=== PATIENT | female | born 1995 | race Two or more races ===

== ENCOUNTER → 2021-02-28 | Emergency (ER) | payer OTHER ==
[~2021-02-28] VITALS: Ht 170.2 cm; Wt 69.9 kg
[~2021-02-28] MED LIST: PRENATAL VITAM1 EAC3
== END | disposition home or self-care (01) ==
LOC: ER 09:49
DX: B34.9 Viral infection, unspecified (principal); Z11.52 Encounter for screening for COVID-19

== ENCOUNTER 2021-07-23 07:30 | Inpatient (IN) | payer OTHER ==
[~2021-07-23] VITALS: Ht 170.2 cm; Wt 82.1 kg
[2021-07-24] MEDS ORDERED: FAMOTIDINE20 MG (15:39)
[2021-07-24] MEDS ORDERED: PANTOPRAZOLE SO40 MG (15:39)
== END 2021-07-25 12:37 | disposition home or self-care (01) | DRG 807 ==
LOC: LDR 07:30 → OB/GYN 07-24 19:30
PROVIDERS: ADMIT Obstetrics & Gynecology; ATTEND Obstetrics & Gynecology
PROC: 10E0XZZ Delivery of Products of Conception, External Approach (ICD-10-PCS; principal; 2021-07-23)
PROC: 0HQ9XZZ Repair Perineum Skin, External Approach (ICD-10-PCS; 2021-07-23)
PROC: 4A1HXFZ Monitoring of Products of Conception, Cardiac Rhythm, External Approach (ICD-10-PCS; 2021-07-23)
DX: O70.0 First degree perineal laceration during delivery (principal); Z37.0 Single live birth; Z3A.38 38 weeks gestation of pregnancy